=== PATIENT | male | born 1945 | race Caucasian/White ===

== ENCOUNTER → 2017-11-16 | Outpatient (CLI) | payer OTHER ==
[~2017-11-16] MED LIST: ALBU8HFA2 INH; ASPI81EC PO; AZIT250 PO; DOXY100 PO; GLIM4 PO; GUAI1200ER PO; HEMOTOB PR; INSULANPEN SC; LISI20 PO; METF500 PO; PRED20 PO
== END ==
LOC: LAB SHORT 10:36 → PLD 10:36
DX: D22.4 Melanocytic nevi of scalp and neck (principal)
CPT/HCPCS: 88304; 88305

== ENCOUNTER → 2018-03-16 | Outpatient (CLI) | payer OTHER ==
[2018-03-16 18:09] LABS: BASOPHILS ABSOLUTE AUTO 0.04 K/mm3 (0.00-0.23); BASOPHILS PERCENT AUTO 0 % (0-2); EOSINOPHILS ABSOLUTE AUTO 0.11 K/mm3 (0.00-0.68); EOSINOPHILS PERCENT AUTO 1 % (0-6); Hematocrit 41.9 % (37.0-53.0); Hemoglobin 14.2 g/dL (13.5-17.5); IMMATURE GRAN ABSOLUTE AUTO 0.06 K/mm3 (0.00-0.10); IMMATURE GRAN PERCENT AUTO 1 % (0-1); LYMPHOCYTES ABSOLUTE AUTO 2.81 K/mm3 (0.84-5.20); LYMPHOCYTES PERCENT AUTO 24 % (21-46); MONOCYTES ABSOLUTE AUTO 0.96 K/mm3 (0.16-1.47); MONOCYTES PERCENT AUTO 8 % (4-13); Mean Corpuscular HGB Conc 33.9 g/dL (31.5-36.5); Mean Corpuscular Volume 86 fL (80-100); Mean Platelet Volume 11.2 fL (9.1-12.4); NEUTROPHILS ABSOLUTE AUTO 7.92 K/mm3 (1.96-9.15); NEUTROPHILS PERCENT AUTO 67 % (41-73); Platelet Count 226 K/mm3 (150-400); RDW Coefficient Variation 13.9 % (11.7-14.2); RDW Standard Deviation 43.3 fL (35.1-46.3); Red Blood Cell Count 4.89 M/mm3 (4.30-5.90)
[2018-03-16 18:16] LABS: Albumin/Globulin Ratio 1.1 (0.8-1.8); Bilirubin, Total 0.6 mg/dL (0.1-1.0); Bun/Creatinine Ratio 20.5 (12.0-20.0); Calcium, Blood 9.1 mg/dL (8.5-10.1); Creatinine, Blood 1.56 mg/dL (0.60-1.20); Globulin, Blood 3.5 g/dL (2.2-4.0); Magnesium, Blood 1.5 mg/dL (1.6-2.4); Potassium, Blood 4.6 mmol/L (3.5-5.5); Total Protein, Blood 7.5 g/dL (6.4-8.2)
== END ==
LOC: LAB EV 18:00 → LAB SHORT 18:00
PROVIDERS: Physician Assistant
DX: I10 Essential (primary) hypertension (principal); R52 Pain, unspecified; R25.2 Cramp and spasm
CPT/HCPCS: 80053; 83735; 85025

== ENCOUNTER → 2020-03-26 | Outpatient (CLI) | payer OTHER | END | disposition home or self-care (01) | LOC: LAB SHORT 09:51 → PLD 09:51 | DX: D48.5 Neoplasm of uncertain behavior of skin (principal) | CPT/HCPCS: 88305 ==

== ENCOUNTER 2020-10-29 07:20 | Day surgery (SDC) | payer OTHER ==
[~2020-10-29] VITALS: Ht 177.8 cm; Wt 113.3 kg
[~2020-10-29 07:20] MED LIST changes: +ALBU90OI INH; +AMLO10 PO; +HYDCHL25 PO; +NOVOLIN R100 UNIT/2; +TOUJEO SOL300 UNIT/2 SC
[2020-10-29] MEDS ORDERED: Prinivil10 MG PO (07:58)
== END 2020-10-29 09:33 | disposition home or self-care (01) ==
LOC: ORSCSDS 07:20
PROVIDERS: Ophthalmology
PROC: 08RK3JZ Replacement of Left Lens with Synthetic Substitute, Percutaneous Approach (ICD-10-PCS; principal; 2020-10-29 08:45)
DX: H25.12 Age-related nuclear cataract, left eye (principal); I10 Essential (primary) hypertension; J44.9 Chronic obstructive pulmonary disease, unspecified; E11.9 Type 2 diabetes mellitus without complications; E66.9 Obesity, unspecified; Z68.35 Body mass index [BMI] 35.0-35.9, adult; Z87.891 Personal history of nicotine dependence; E78.2 Mixed hyperlipidemia; Z79.4 Long term (current) use of insulin; Z79.899 Other long term (current) drug therapy
CPT/HCPCS: 82947; J2001; J2250; J3010; J3301; J7040; V2632

== ENCOUNTER → 2021-02-25 | Outpatient (CLI) | payer OTHER ==
[~2021-02-25] MED LIST changes: +Prinivil10 MG PO
[2021-02-25 09:28] LABS: Source, Urine Voided
[2021-02-25 12:27] LABS: Bilirubin, Urine Neg (Neg); Blood, Urine 5+ (Neg); Glucose Qualitative, Urine Neg (Neg); Ketones, Urine 1+ (Neg); Leukocyte Esterase, Urine 2+ (Neg); Nitrite, Urine Neg (Neg); Protein, Urine 4+ (Neg); Specific Gravity, Urine 1.015 (1.003-1.022); Urobilinogen, Urine NORM (Normal)
[2021-02-25 12:30] LABS: Appearance, Urine Bloody (Clear); Color, Urine Red (P-Yellow)
[2021-02-25 12:32] LABS: Red Blood Cells, Urine TNTC /hpf (0-2); White Blood Cells, Urine TNTC /hpf (0-5)
[2021-02-25 12:33] LABS: Bacteria Few /hpf; Squamous Epithelial Cells Not Seen /hpf (Few); Transitional Epithelial Cells Rare /hpf (0-Rare)
== END ==
LOC: LAB UCHC 09:00 → LAB SHORT 09:00
PROVIDERS: Family Medicine
DX: R35.0 Frequency of micturition (principal)
CPT/HCPCS: 81001; 87077; 87086; 87186

== ENCOUNTER 2021-09-09 06:05 | Day surgery (SDC) | payer OTHER ==
[~2021-09-09] VITALS: Ht 177.8 cm; Wt 103.4 kg
--- NOTE | 2021-09-09 08:21 | NUR ---
09/09/21 0821 Xochilt Rubio PT REFUSES TO DRINK WATER BEFORE LEAVING BECAUSE HE STATES HE CAN'T, DR MELGAR SAYS IT IS OK TO GIVE THE REMAINDER OF HIS FLUIDS BEFORE DISCHARGE AND THAT PT MAY USE THE FEEDING TUBE FOR WATER AFTER 6 HOURS. ORSC.JOSEPH IS IN DEMONSTRATING HOW TO USE THE PEG TUBE TO GIVE WATER. PT HAS APT TOMORROW WITH THE CHIEF GUARD TOMORROW.
== END 2021-09-09 09:04 | disposition home or self-care (01) ==
LOC: ORSCSDS 06:05
PROVIDERS: Surgery
PROC: 0DH63UZ Insertion of Feeding Device into Stomach, Percutaneous Approach (ICD-10-PCS; principal; 2021-09-09 07:30)
DX: C02.1 Malignant neoplasm of border of tongue (principal); I10 Essential (primary) hypertension; J44.9 Chronic obstructive pulmonary disease, unspecified; K21.9 Gastro-esophageal reflux disease without esophagitis; E11.9 Type 2 diabetes mellitus without complications; E66.9 Obesity, unspecified; Z79.84 Long term (current) use of oral hypoglycemic drugs; Z79.899 Other long term (current) drug therapy; Z79.82 Long term (current) use of aspirin
CPT/HCPCS: 82947; C1769; J0690; J2704; J3010; J7120

== ENCOUNTER 2021-10-28 17:29 | Observation (INO) | payer OTHER ==
[~2021-10-28] VITALS: Ht 177.8 cm; Wt 96.6 kg
[~2021-10-28 17:29] MED LIST changes: -GLIM4 PO; +GLIM4 PT; -HYDCHL25 PO; +HYDCHL25 PT
[2021-10-28 19:07] LABS: BASOPHILS ABSOLUTE AUTO 0.03 K/mm3 (0.00-0.23); BASOPHILS PERCENT AUTO 0 % (0-2); EOSINOPHILS ABSOLUTE AUTO 0.04 K/mm3 (0.00-0.68); EOSINOPHILS PERCENT AUTO 0 % (0-6); Hematocrit 41.5 % (37.0-53.0); Hemoglobin 14.6 g/dL (13.5-17.5); IMMATURE GRAN ABSOLUTE AUTO 0.12 K/mm3 (0.00-0.10); IMMATURE GRAN PERCENT AUTO 1 % (0-1); LYMPHOCYTES ABSOLUTE AUTO 0.99 K/mm3 (0.84-5.20); LYMPHOCYTES PERCENT AUTO 9 % (21-46); MONOCYTES ABSOLUTE AUTO 1.11 K/mm3 (0.16-1.47); MONOCYTES PERCENT AUTO 10 % (4-13); Mean Corpuscular HGB Conc 35.2 g/dL (31.5-36.5); Mean Corpuscular Volume 83 fL (80-100); Mean Platelet Volume 10.4 fL (9.1-12.4); NEUTROPHILS ABSOLUTE AUTO 8.89 K/mm3 (1.96-9.15); NEUTROPHILS PERCENT AUTO 79 % (41-73); Platelet Count 366 K/mm3 (150-400); RDW Coefficient Variation 15.8 % (11.7-14.2); Red Blood Cell Count 5.03 M/mm3 (4.30-5.90); White Blood Cell Count 11.18 K/mm3 (4.00-11.30)
[2021-10-28 19:32] LABS: Alanine Aminotransfer (ALT/SGP 31 U/L (12-78); Albumin/Globulin Ratio 0.8 (0.8-1.8); Alk Phos 81 U/L (50-136); Anion Gap 6 mmol/L (6-16); Aspartate Aminotrans (AST/SGOT 15 U/L (12-37); Bilirubin, Total 0.8 mg/dL (0.1-1.0); Blood Urea Nitrogen 16 mg/dL (8-24); Bun/Creatinine Ratio 19.8 (12.0-20.0); CO2, Blood 32 mmol/L (21-32); Calcium, Blood 9.1 mg/dL (8.5-10.1); Chloride, Blood 85 mmol/L (98-108); Creatinine, Blood 0.81 mg/dL (0.60-1.20); Globulin, Blood 3.8 g/dL (2.2-4.0); Glomerular Filtration Rate >60 (60-); Glucose, Blood 224 mg/dL (70-99); Potassium, Blood 3.6 mmol/L (3.5-5.5); Sodium, Blood 123 mmol/L (136-145); Total Protein, Blood 6.8 g/dL (6.4-8.2)
[2021-10-28 23:33] LABS: Source, Urine Clean Catch
[2021-10-28 23:41] LABS: Bilirubin, Urine Neg (Neg); Blood, Urine Neg (Neg); Glucose Qualitative, Urine 2+ (Neg); Ketones, Urine Neg (Neg); Leukocyte Esterase, Urine Neg (Neg); Nitrite, Urine Neg (Neg); Protein, Urine 2+ (Neg); Urobilinogen, Urine NORM (Normal)
[2021-10-29] MEDS ORDERED: METF500 PT (00:04)
[2021-10-29] MEDS ORDERED: Ondansetron Odt8 MG PT (00:06)
[2021-10-29 00:17] LABS: Appearance, Urine Clear (Clear); Color, Urine Yellow (P-Yellow)
[2021-10-29 00:19] LABS: Amorphous Light (0-Heavy); Bacteria Rare /hpf; Hyaline Casts 0-2 /lpf (0-2); Red Blood Cells, Urine Not Seen /hpf (0-2); Squamous Epithelial Cells Rare /hpf (Few); White Blood Cells, Urine Not Seen /hpf (0-5)
[2021-10-29] MEDS ORDERED: GAVISCON PO (01:01)
[2021-10-29] MEDS ORDERED: OMEPRAZOLE PT (01:50)
[2021-10-29] MEDS ORDERED: DEXA2 PT (01:50)
[2021-10-29] MEDS ORDERED: MOMETASONE FUROATE TOP (01:52)
[2021-10-29] MEDS ORDERED: LORA2L PT (01:53)
[2021-10-29 05:52] LABS: Anion Gap 10 mmol/L (6-16); Blood Urea Nitrogen 14 mg/dL (8-24); CO2, Blood 30 mmol/L (21-32); Calcium, Blood 8.6 mg/dL (8.5-10.1); Chloride, Blood 90 mmol/L (98-108); Creatinine, Blood 0.64 mg/dL (0.60-1.20); Glomerular Filtration Rate >60 (60-); Glucose, Blood 174 mg/dL (70-99); Potassium, Blood 3.5 mmol/L (3.5-5.5); Sodium, Blood 130 mmol/L (136-145)
[2021-10-29 13:55] LABS: Anion Gap 9 mmol/L (6-16); Blood Urea Nitrogen 15 mg/dL (8-24); Bun/Creatinine Ratio 21.7 (12.0-20.0); CO2, Blood 29 mmol/L (21-32); Calcium, Blood 8.8 mg/dL (8.5-10.1); Chloride, Blood 93 mmol/L (98-108); Creatinine, Blood 0.69 mg/dL (0.60-1.20); Glomerular Filtration Rate >60 (60-); Glucose, Blood 335 mg/dL (70-99); Potassium, Blood 3.5 mmol/L (3.5-5.5); Sodium, Blood 131 mmol/L (136-145)
--- NOTE | 2021-10-29 14:10 | NUR ---
ORTHOSTATIC V/S [address] BALLARD OF ORTHO VS RESULTS. NO FURTHER ORDERS NOTED. PT RESTING COMFORTABLY IN BED AT THIS TIME. CALL LIGHT WITHIN REACH REACH
[2021-10-29 14:55] LABS: Adenovirus F 40/41 Not Detected (NOT DETECT); Astrovirus Not Detected (NOT DETECT); Campylobacter Sp Not Detected (NOT DETECT); Cryptosporidium Not Detected (NOT DETECT); Cyclospora Cayetanensis Not Detected (NOT DETECT); E. Coli O157 Not Detected (NOT DETECT); Entamoeba Histolytica Not Detected (NOT DETECT); Enteroaggregative E. coli-EAEC Not Detected (NOT DETECT); Enteropathogenic E. coli-EPEC Not Detected (NOT DETECT); Enterotoxigenic E. coli-ETEC Not Detected (NOT DETECT); Giardia Lamblia Not Detected (NOT DETECT); Norovirus GI/GII Not Detected (NOT DETECT); Plesiomonas Shigelloides Not Detected (NOT DETECT); Rotavirus A Not Detected (NOT DETECT); Salmonella Sp Not Detected (NOT DETECT); Sapovirus Not Detected (NOT DETECT); Shiga Toxin-prod E. coli-STEC Not Detected (NOT DETECT); Shigella/Enteroin E. coli-EIEC Not Detected (NOT DETECT); Vibrio Cholerae Not Detected (NOT DETECT); Vibrio Sp Not Detected (NOT DETECT); Yersinia Enterocolitica Not Detected (NOT DETECT)
[2021-10-29] MEDS ORDERED: DIPHENHYDR12.5 MG/5 MT (17:33)
[2021-10-29] MEDS ORDERED: GI COCKTAIL MT (17:34)
[2021-10-29] MEDS ORDERED: HUMALOG KW100 UNIT/1 SC (17:34)
[2021-10-29] MEDS ORDERED: Xylocaine5 M1 MT (17:35)
[2021-10-29] MEDS ORDERED: [UNRECOGNIZED DRUG - CODE] MT (17:35)
[2021-10-29] MEDS ORDERED: Tylenol W/Code120 ML PT (17:36)
[2021-10-29] MEDS ORDERED: SODCHL1 PT (17:36)
--- NOTE | 2021-10-29 18:20 | NUR ---
DISCHARGE SUMMARY PT DISCHARGE THIS SHIFT AT APPROXIMATELY AT 1810, PT IS AAOX4, ABLE TO MAKE NEED KNOWN. PT AND CAREGIVER VERBALIZED UNDERSTANDING OF DISCHARGE ORDERS. NO COMPLAINTS OR ANY ISSUES NOTED FROM PATIENT PRIOR TO DC. IV LINE AND TELE DISCONTINUED. PEG TUBE PATENT. PT DENIES ANY DISCOMFORT PRIOR TO DC. DC PAPERWORK GIVEN TO PATIENT UPON DC.
== END 2021-10-29 18:04 | disposition home or self-care (01) ==
LOC: ER 17:29 → MEDS 17:30
PROVIDERS: Family Medicine; Physician Assistant; ADMIT Internal Medicine
DX: E87.1 Hypo-osmolality and hyponatremia (principal); R55 Syncope and collapse; E86.0 Dehydration; R53.1 Weakness; I10 Essential (primary) hypertension; E11.649 Type 2 diabetes mellitus with hypoglycemia without coma; J45.909 Unspecified asthma, uncomplicated; R19.7 Diarrhea, unspecified; R11.2 Nausea with vomiting, unspecified; Z93.1 Gastrostomy status; Z85.810 Personal history of malignant neoplasm of tongue; Z79.4 Long term (current) use of insulin
CPT/HCPCS: 0097U; 36415; 71045; 80048; 80053; 81001; 82947; 83735; 83930; 83935; 84295; 85025; 96372; 96374; 96376; 97116; 97161; 97530; 99285-25; A9270; G0378; J1650; J1815; J3010; J7030

== ENCOUNTER → 2021-11-11 | Outpatient (CLI) | payer OTHER ==
[~2021-11-11] MED LIST changes: +DEXA2 PT; +DIPHENHYDR12.5 MG/5 MT; +GAVISCON PO; +GI COCKTAIL MT; +HUMALOG KW100 UNIT/1 SC; +LORA2L PT; +METF500 PT; +MOMETASONE FUROATE TOP; +OMEPRAZOLE PT; +Ondansetron Odt8 MG PT; +SODCHL1 PT; +Tylenol W/Code120 ML PT; +Xylocaine5 M1 MT; +[UNRECOGNIZED DRUG - CODE] MT
[2021-11-11 15:25] LABS: Anion Gap 4 mmol/L (6-16); Blood Urea Nitrogen 23 mg/dL (8-24); Bun/Creatinine Ratio 26.9 (12.0-20.0); CO2, Blood 30 mmol/L (21-32); Calcium, Blood 9.1 mg/dL (8.5-10.1); Chloride, Blood 100 mmol/L (98-108); Creatinine, Blood 0.86 mg/dL (0.60-1.20); Glomerular Filtration Rate >60 (60-); Glucose, Blood 125 mg/dL (70-99); Potassium, Blood 4.3 mmol/L (3.5-5.5); Sodium, Blood 134 mmol/L (136-145)
== END | disposition home or self-care (01) ==
LOC: LAB SHORT 12:37
PROVIDERS: Family Medicine
DX: E87.1 Hypo-osmolality and hyponatremia (principal); E53.8 Deficiency of other specified B group vitamins; R68.89 Other general symptoms and signs
CPT/HCPCS: 80048

== ENCOUNTER 2022-01-01 07:47 | Emergency (ER) | payer OTHER ==
[~2022-01-01] VITALS: Ht 177.8 cm; Wt 86.6 kg
[2022-01-01] MEDS ORDERED: Lisinopril2.5 MG PO (09:15)
[2022-01-01] MEDS ORDERED: HYDROCODONE AC (09:16)
[2022-01-01] MEDS ORDERED: TRANSDERM-SCOP1 EAC9 TD (09:17)
[2022-01-01] MEDS ORDERED: MINERAL OIL PR (13:49)
[2022-01-01] MEDS ORDERED: LUBIPROSTONE PO (13:49)
== END 2022-01-01 14:23 | disposition home or self-care (01) ==
LOC: ER 07:47
DX: K59.03 Drug induced constipation (principal); T40.2X5A Adverse effect of other opioids, initial encounter; Z88.8 Allergy status to other drugs, medicaments and biological substances; Z88.5 Allergy status to narcotic agent; Z79.899 Other long term (current) drug therapy; Z79.4 Long term (current) use of insulin; Z79.84 Long term (current) use of oral hypoglycemic drugs; E11.9 Type 2 diabetes mellitus without complications; I10 Essential (primary) hypertension; J45.909 Unspecified asthma, uncomplicated; Z85.51 Personal history of malignant neoplasm of bladder
CPT/HCPCS: 74018; 99283-25; A9270

== ENCOUNTER 2022-09-04 06:10 | Day surgery (SDC) | payer OTHER ==
[~2022-09-04 06:10] MED LIST changes: +HYDROCODONE AC; +LUBIPROSTONE PO; +Lisinopril2.5 MG PO; +MINERAL OIL PR; +TRANSDERM-SCOP1 EAC9 TD
[2022-09-04] MEDS ORDERED: AMLO5 PO (06:44)
== END 2022-09-04 08:50 | disposition home or self-care (01) ==
DX: C10.9 Malignant neoplasm of oropharynx, unspecified (principal); R13.14 Dysphagia, pharyngoesophageal phase; D49.1 Neoplasm of unspecified behavior of respiratory system; I10 Essential (primary) hypertension; J44.9 Chronic obstructive pulmonary disease, unspecified; Z87.891 Personal history of nicotine dependence; E11.9 Type 2 diabetes mellitus without complications; Z79.899 Other long term (current) drug therapy

== ENCOUNTER → 2023-08-04 | Outpatient (CLI) | payer OTHER ==
[~2023-08-04] MED LIST changes: +AMLO5 PO; +Prednisone10 MG PO
[2023-08-04 15:47] LABS: Microalb/Creat Ratio UR, Rand 78.941 mg/g (0.000-30.000); Microalbumin, Random Urine 67.1 mg/L (0.000-20.000)
== END | disposition home or self-care (01) ==
LOC: LAB 10:32 → LAB SHORT 10:32
PROVIDERS: Family Medicine
DX: E11.9 Type 2 diabetes mellitus without complications (principal)
CPT/HCPCS: 82043; 82570

== ENCOUNTER 2024-02-01 08:20 | Day surgery (SDC) | payer OTHER ==
[2024-02-01] VITALS (23 sets, daily range): BP systolic 130–172; BP diastolic 69–117
[~2024-02-01] VITALS: Ht 177.8 cm; Wt 96.5 kg
[~2024-02-01 08:20] MED LIST changes: +EUTHYROX88 MCG PO; +Lactated Ringer's 1,000 ML IV SCH; +NOVOLOG FL100 UNIT/3
[2024-02-01] MEDS ORDERED: propofoL 40 ML IV ONE (09:09)
--- NOTE | 2024-02-01 09:34 | NUR ---
02/01/24 0934 Alondra Bruce HISTORY, CHART, MEDICATIONS AND ALLERGIES REVIEWED BEFORE START OF PROCEDURE. PATIENT CONFIRMS NPO STATUS AND AGREES WITH SCHEDULED PROCEDURE. 3-LEAD EKG REVIEWED WITH PHYSICIAN PRIOR TO START OF PROCEDURE. MONITOR INTACT WITH CONTINUOUS PULSE OXIMETRY,CAPNOGRAPHY, 3-LEAD EKG, INTERMITTENT BP. SUPPLEMENTAL O2 TO BE TITRATED THROUGHOUT PROCEDURE TO MAINTAIN O2 SATURATION ABOVE 90%. PATIENT DETERMINED TO BE ASA APPROPRIATE FOR PROPOFOL SEDATION PRIOR TO START OF PROCEDURE BY
--- NOTE | 2024-02-01 10:26 | NUR ---
REVIEWED DISCHARGE INSTRUCTION. IV DC'D INTACT. PT DENIES PAIN OR OTHER C/O AT THIS TIME. PT HAS A RIDE HOME WITH FRIEND. PT DISCHARGED FROM FACILITY VIA WHEELCHAIR.
== END 2024-02-01 10:30 | disposition home or self-care (01) ==
LOC: ORSCMMR 08:20 → ORD 09:00 → ORSCMMR 10:30
DX: Z12.11 Encounter for screening for malignant neoplasm of colon (principal); K51.40 Inflammatory polyps of colon without complications; K63.5 Polyp of colon; I10 Essential (primary) hypertension; E11.9 Type 2 diabetes mellitus without complications; E03.9 Hypothyroidism, unspecified; Z79.899 Other long term (current) drug therapy; Z79.4 Long term (current) use of insulin; Z85.51 Personal history of malignant neoplasm of bladder; Z85.810 Personal history of malignant neoplasm of tongue
CPT/HCPCS: 82947; 88305; J2704; J7120

== ENCOUNTER 2024-08-30 11:08 | Emergency (ER) | payer OTHER ==
[~2024-08-30] VITALS: Ht 177.8 cm; Wt 97.1 kg
[~2024-08-30 11:08] MED LIST changes: +AMLODIPINE BESY10 MG PO; +EUTHYROX125 MC1 PO; -Lactated Ringer's 1,000 ML IV SCH; -NOVOLOG FL100 UNIT/3; +NOVOLOG FL100 UNIT/3 SC
[2024-08-30 11:49] LABS: BASOPHILS ABSOLUTE AUTO 0.04 K/mm3 (0.00-0.23); BASOPHILS PERCENT AUTO 1 % (0-2); EOSINOPHILS ABSOLUTE AUTO 0.12 K/mm3 (0.00-0.68); EOSINOPHILS PERCENT AUTO 2 % (0-6); Hematocrit 43.8 % (37.0-53.0); Hemoglobin 14.2 g/dL (13.5-17.5); IMMATURE GRAN ABSOLUTE AUTO 0.02 K/mm3 (0.00-0.10); IMMATURE GRAN PERCENT AUTO 0 % (0-1); LYMPHOCYTES ABSOLUTE AUTO 1.64 K/mm3 (0.84-5.20); LYMPHOCYTES PERCENT AUTO 20 % (21-46); MONOCYTES ABSOLUTE AUTO 0.56 K/mm3 (0.16-1.47); MONOCYTES PERCENT AUTO 7 % (4-13); Mean Corpuscular HGB 27.4 pg (26.0-34.0); Mean Corpuscular HGB Conc 32.4 g/dL (31.5-36.5); Mean Corpuscular Volume 84 fL (80-100); Mean Platelet Volume 10.7 fL (9.1-12.4); NEUTROPHILS ABSOLUTE AUTO 5.82 K/mm3 (1.96-9.15); NEUTROPHILS PERCENT AUTO 71 % (41-73); Platelet Count 244 K/mm3 (150-400); RDW Coefficient Variation 14.7 % (11.7-14.2); Red Blood Cell Count 5.19 M/mm3 (4.30-5.90)
[2024-08-30 12:12] LABS: Albumin, Blood 3.7 g/dL (3.4-5.0); Albumin/Globulin Ratio 1.1 (0.8-1.8); Bilirubin, Total 0.8 mg/dL (0.1-1.0); Bun/Creatinine Ratio 28.5 (12.0-20.0); Creatinine, Blood 0.91 mg/dL (0.60-1.20); Globulin, Blood 3.5 g/dL (2.2-4.0); Potassium, Blood 4.5 mmol/L (3.5-5.5); Total Protein, Blood 7.2 g/dL (6.4-8.2)
[2024-08-30 13:12] VITALS: BP 120/73
== END 2024-08-30 13:19 | disposition home or self-care (01) ==
LOC: ER 11:08
PROVIDERS: Physician Assistant
DX: R55 Syncope and collapse (principal); E11.9 Type 2 diabetes mellitus without complications; I10 Essential (primary) hypertension; J45.909 Unspecified asthma, uncomplicated; Z88.8 Allergy status to other drugs, medicaments and biological substances; Z79.4 Long term (current) use of insulin; Z79.899 Other long term (current) drug therapy
CPT/HCPCS: 80053; 84484; 85025; 93005; 93010; 93242; 99284-25

== ENCOUNTER 2024-10-05 06:02 | Day surgery (SDC) | payer OTHER ==
[~2024-10-05] VITALS: Ht 177.8 cm; Wt 102.4 kg
[~2024-10-05 06:02] MED LIST changes: +Balanced Salt Epinephrine Irrigation Solution 500 mL IR SCH; +Lidocaine HCl/Pf 1% 5 ML VIAL XX SCH; +Moxifloxacin HCL 0.5 MG/0.1 ML 0.4MLSYR RIGHTEYE SCH; +PHENYLEPHRINE\\TROPICAMIDE\\TETRACAINE OPHTHALMIC DILATING SOLN RIGHTEYE PRN; +Povidone-Iodine 450 DROP/30 ML Solution ONE; +Povidone-Iodine 450 DROP/30 ML Solution RIGHTEYE SCH; +Tetracaine HCl/Pf 0.5% Opth Soln 4 ml ONE; +Triamcinolone Inj Susp 40 MG / ML 1ML Vial INJ SCH
--- NOTE | 2024-10-05 06:30 | NUR ---
10/05/24 0630 Dinorah Owen AT 0620 PLEDGET AT 0621
[2024-10-05] MEDS ORDERED: Triamcinolone Inj Susp 40 MG / ML 1ML Vial ONE (06:34)
[2024-10-05] MEDS ORDERED: Lidocaine HCl/Pf 1% 5 ML VIAL ONE (06:44)
[2024-10-05] MEDS ORDERED: Midazolam HCl 1MG / ML 2ML Vial ONE (07:25)
[2024-10-05 08:21] VITALS: BP 118/65
== END 2024-10-05 08:08 | disposition home or self-care (01) ==
LOC: ORSCSDS 06:02
PROVIDERS: Ophthalmology
PROC: 08RJ3JZ Replacement of Right Lens with Synthetic Substitute, Percutaneous Approach (ICD-10-PCS; principal; 2024-10-05 07:30)
DX: E11.9 Type 2 diabetes mellitus without complications (principal); H25.811 Combined forms of age-related cataract, right eye; Z96.1 Presence of intraocular lens; J44.9 Chronic obstructive pulmonary disease, unspecified; I12.9 Hypertensive chronic kidney disease with stage 1 through stage 4 chronic kidney disease, or unspecified chronic kidney disease; E11.22 Type 2 diabetes mellitus with diabetic chronic kidney disease; N18.9 Chronic kidney disease, unspecified; E78.5 Hyperlipidemia, unspecified; Z85.51 Personal history of malignant neoplasm of bladder; Z79.4 Long term (current) use of insulin; Z79.899 Other long term (current) drug therapy
CPT/HCPCS: 82947; J2003; J2250; J3301; V2632